=== PATIENT | female | born 1990 | race Caucasian/White ===

== ENCOUNTER 2016-12-24 15:40 | Emergency (ER) | payer BC ==
[~2016-12-24 15:40] MED LIST: ALBUTEROL SULF8.5 G1 IH; ALBUTEROL17 GM; ALBUTEROL17 GM INH; BLEPH-105 M2 OP; CARAFATE1 G2 PO; DELTASONE10 MG PO; DEPO SHOT; IBUPROFEN800 MG PO; LEXAPRO20 MG; LITHIUM CARBON300; LITHIUM CARBON300 MG; MACRODANTIN100 MG PO; MULTIVITAMIN1 TAB PO; NO HOME MEDS; NORCO 5-325 TA1 EACH PO; PHENERGAN W/CO120 ML PO; PREDNISONE50 M1 PO; PRENATAL1 EACH PO; PRILOSEC OTC20 M1 PO; PROMETHAZINE-C118 ML PO; PROMETRIUM200 MG PO; PROVENTIL HFA6.7 G1 IH; SEPTRA DS TABLE1 TAB PO; VENTOLIN HFA18 G2 PO; ZOFRAN ODT4 MG/UDTAB PO
[2017-04-02] MEDS ORDERED: VALTREX500 M1 PO (11:34)
[2017-04-02] MEDS ORDERED: ADDERALL 10 MG10 M2 PO (11:36)
[2017-04-02] MEDS ORDERED: NORCO 5-325 TA1 EACH PO (11:37)
[2017-04-02] MEDS ORDERED: CARAFATE1 G2 PO (11:42)
[2017-04-02] MEDS ORDERED: OMEPRAZOLE20 M3 PO (11:44)
[2017-04-02] MEDS ORDERED: TYLENOL EXTRA500 M1 PO (11:56)
[2017-04-11] MEDS ORDERED: FIORICET 50-301 EAC1 PO (13:13)
[2017-04-11] MEDS ORDERED: FLAGYL500 M1 PO (13:14)
[2017-04-11] MEDS ORDERED: COMPAZINE10 MG PO (15:12)
[2017-04-24] MEDS ORDERED: FLAGYL500 M1 PO (17:38)
== END 2016-12-24 19:50 ==
LOC: EDMED 15:40
DX: Z53.21 Procedure and treatment not carried out due to patient leaving prior to being seen by health care provider (principal)

== ENCOUNTER 2016-12-25 08:59 | Emergency (ER) | payer BC, SELFPAY ==
[2017-04-02] MEDS ORDERED: VALTREX500 M1 PO (11:34)
[2017-04-02] MEDS ORDERED: ADDERALL 10 MG10 M2 PO (11:36)
[2017-04-02] MEDS ORDERED: NORCO 5-325 TA1 EACH PO (11:37)
[2017-04-02] MEDS ORDERED: CARAFATE1 G2 PO (11:42)
[2017-04-02] MEDS ORDERED: OMEPRAZOLE20 M3 PO (11:44)
[2017-04-02] MEDS ORDERED: TYLENOL EXTRA500 M1 PO (11:56)
[2017-04-11] MEDS ORDERED: FIORICET 50-301 EAC1 PO (13:13)
[2017-04-11] MEDS ORDERED: FLAGYL500 M1 PO (13:14)
[2017-04-11] MEDS ORDERED: COMPAZINE10 MG PO (15:12)
[2017-04-24] MEDS ORDERED: FLAGYL500 M1 PO (17:38)
== END 2016-12-25 11:14 ==
LOC: EDMED 08:59
DX: S30.814A Abrasion of vagina and vulva, initial encounter (principal); J45.909 Unspecified asthma, uncomplicated; F17.210 Nicotine dependence, cigarettes, uncomplicated; Z90.89 Acquired absence of other organs; X58.XXXA Exposure to other specified factors, initial encounter

== ENCOUNTER 2017-02-06 11:25 | Emergency (ER) | payer MEDICAID ==
[2017-02-06 12:42] LABS: BASO % 0.1 % (0-2); EOS % 1.2 % (0-7); EOSINOPHIL ABSOLUTE COUNT 0.1 tho/cmm (0.0-0.7); HCT-HEMATOCRIT 36.6 % (34.0-49.0); HGB-HEMOGLOBIN 12.5 gm/dl (12.0-15.5); IMMATURE GRANULOCYTES ABSOLUTE 0.02 tho/cmm (0-0.03); IMMATURE GRANULOCYTES PERCENT 0.3 % (0-0.3); LYMPH % 19.2 % (20-45); LYMPH ABSOLUTE COUNT 1.5 tho/cmm (0.8-4.5); MCH (MEAN CORPUSCULAR HGB) 30.9 pg (28.0-32.0); MCHC MEAN CORPUSCULAR HGB CONC 34.2 % (32.0-36.0); MCV (MEAN CELL VOLUME) 90.6 fl (82.0-96.0); MEAN PLATELET VOLUME 9.4 cmc (9.4-12.4); MONO % 7.4 % (0-12); MONOCYTE ABSOLUTE COUNT 0.6 tho/cmm (0.0-1.2); NEUTROPHIL ABSOLUTE COUNT 5.4 tho/cmm (1.6-8.0); NEUTROPHIL-AUTOMATED 5.4 tho/cmm (1.6-8.0); NEUTROPHILS % 71.8 % (40-80); PLATELET COUNT 240 tho/cmm (150-450); RED BLOOD COUNT 4.04 mil/cmm (4.00-5.20); WHITE BLOOD COUNT 7.6 tho/cmm (4.0-10.0)
[2017-02-06 13:31] LABS: ANION GAP 13 mmol/L (0-20); BLOOD UREA NITROGEN 15 mg/dl (6-24); CALCIUM 8.8 mg/dl (8.5-10.5); CARBON DIOXIDE-VENOUS 24 mmol/L (22-32); CHLORIDE 110 mmol/l (96-110); CREATININE 0.71 mg/dl (0.50-1.10); GLUCOSE 89 mg/dL (70-110); POTASSIUM 4.5 mmol/L (3.7-5.1); SODIUM 142 mmol/L (135-145); eGFR VALUE FOR BLACK >90 mL/Min
[2017-02-06 14:33] LABS: URINE BILIRUBIN NEGATIVE (NEG); URINE BLOOD NEGATIVE (NEG); URINE GLUCOSE (UA) NEGATIVE (NEG); URINE KETONE SMALL (NEG); URINE LEUKOCYTE ESTERASE NEGATIVE (NEG); URINE NITRITE NEGATIVE (NEG); URINE PROTEIN NEGATIVE (NEG)
[2017-02-06 14:35] LABS: URINE APPEARANCE CLEAR; URINE COLOR PALE YELLOW
[2017-02-06] MEDS ORDERED: PROMETHAZINE HC25 M3 PO (14:53)
[2017-02-06] MEDS ORDERED: PRENATAL VITAM1 EA12 PO (14:53)
[2017-04-02] MEDS ORDERED: VALTREX500 M1 PO (11:34)
[2017-04-02] MEDS ORDERED: ADDERALL 10 MG10 M2 PO (11:36)
[2017-04-02] MEDS ORDERED: NORCO 5-325 TA1 EACH PO (11:37)
[2017-04-02] MEDS ORDERED: CARAFATE1 G2 PO (11:42)
[2017-04-02] MEDS ORDERED: OMEPRAZOLE20 M3 PO (11:44)
[2017-04-02] MEDS ORDERED: TYLENOL EXTRA500 M1 PO (11:56)
[2017-04-11] MEDS ORDERED: FIORICET 50-301 EAC1 PO (13:13)
[2017-04-11] MEDS ORDERED: FLAGYL500 M1 PO (13:14)
[2017-04-11] MEDS ORDERED: COMPAZINE10 MG PO (15:12)
[2017-04-24] MEDS ORDERED: FLAGYL500 M1 PO (17:38)
== END 2017-02-06 15:08 ==
LOC: EDMED 11:25
PROVIDERS: Emergency Medicine
DX: O99.89 Other specified diseases and conditions complicating pregnancy, childbirth and the puerperium (principal); O26.851 Spotting complicating pregnancy, first trimester; R10.2 Pelvic and perineal pain; R11.10 Vomiting, unspecified; R19.7 Diarrhea, unspecified
CPT/HCPCS: J0780; J7030

== ENCOUNTER 2017-02-19 17:26 | Emergency (ER) | payer MEDICAID ==
[~2017-02-19 17:26] MED LIST changes: +PRENATAL VITAM1 EA12 PO; +PROMETHAZINE HC25 M3 PO
[2017-02-20] MEDS ORDERED: LEXAPRO20 M2 PO (08:54)
[2017-02-20] MEDS ORDERED: PRENATAL-U CAPS1 CAP PO (08:54)
[2017-02-20] MEDS ORDERED: ZOFRAN ODT4 MG PO (10:45)
[2017-04-02] MEDS ORDERED: VALTREX500 M1 PO (11:34)
[2017-04-02] MEDS ORDERED: ADDERALL 10 MG10 M2 PO (11:36)
[2017-04-02] MEDS ORDERED: NORCO 5-325 TA1 EACH PO (11:37)
[2017-04-02] MEDS ORDERED: CARAFATE1 G2 PO (11:42)
[2017-04-02] MEDS ORDERED: OMEPRAZOLE20 M3 PO (11:44)
[2017-04-02] MEDS ORDERED: TYLENOL EXTRA500 M1 PO (11:56)
[2017-04-11] MEDS ORDERED: FIORICET 50-301 EAC1 PO (13:13)
[2017-04-11] MEDS ORDERED: FLAGYL500 M1 PO (13:14)
[2017-04-11] MEDS ORDERED: COMPAZINE10 MG PO (15:12)
[2017-04-24] MEDS ORDERED: FLAGYL500 M1 PO (17:38)
== END 2017-02-19 19:54 | disposition left against medical advice (07) ==
LOC: EDMED 17:26
DX: Z53.21 Procedure and treatment not carried out due to patient leaving prior to being seen by health care provider (principal)

== ENCOUNTER 2017-02-20 08:46 | Emergency (ER) | payer MEDICAID ==
[2017-02-20] MEDS ORDERED: LEXAPRO20 M2 PO (08:54)
[2017-02-20] MEDS ORDERED: PRENATAL-U CAPS1 CAP PO (08:54)
[2017-02-20 10:45] LABS: BASO % 0.1 % (0-2); EOS % 0.7 % (0-7); EOSINOPHIL ABSOLUTE COUNT 0.1 tho/cmm (0.0-0.7); HCT-HEMATOCRIT 35.8 % (34.0-49.0); HGB-HEMOGLOBIN 12.3 gm/dl (12.0-15.5); IMMATURE GRANULOCYTES ABSOLUTE 0.01 tho/cmm (0-0.03); IMMATURE GRANULOCYTES PERCENT 0.1 % (0-0.3); LYMPH % 14.9 % (20-45); MCH (MEAN CORPUSCULAR HGB) 30.8 pg (28.0-32.0); MCHC MEAN CORPUSCULAR HGB CONC 34.4 % (32.0-36.0); MCV (MEAN CELL VOLUME) 89.5 fl (82.0-96.0); MEAN PLATELET VOLUME 9.7 cmc (9.4-12.4); MONO % 8.8 % (0-12); MONOCYTE ABSOLUTE COUNT 0.6 tho/cmm (0.0-1.2); NEUTROPHIL ABSOLUTE COUNT 5.1 tho/cmm (1.6-8.0); NEUTROPHIL-AUTOMATED 5.1 tho/cmm (1.6-8.0); NEUTROPHILS % 75.4 % (40-80); PLATELET COUNT 230 tho/cmm (150-450); RED CELL DISTRIBUTION WIDTH 11.8 % (12.4-16.4); WHITE BLOOD COUNT 6.8 tho/cmm (4.0-10.0)
[2017-02-20] MEDS ORDERED: ZOFRAN ODT4 MG PO (10:45)
[2017-02-20 10:52] LABS: ANION GAP 13 mmol/L (0-20); BLOOD UREA NITROGEN 11 mg/dl (6-24); CALCIUM 8.5 mg/dl (8.5-10.5); CARBON DIOXIDE-VENOUS 24 mmol/L (22-32); CHLORIDE 109 mmol/l (96-110); CREATININE 0.71 mg/dl (0.50-1.10); GLUCOSE 86 mg/dL (70-110); POTASSIUM 3.9 mmol/L (3.7-5.1); SODIUM 142 mmol/L (135-145); eGFR VALUE FOR BLACK >90 mL/Min
[2017-04-02] MEDS ORDERED: VALTREX500 M1 PO (11:34)
[2017-04-02] MEDS ORDERED: ADDERALL 10 MG10 M2 PO (11:36)
[2017-04-02] MEDS ORDERED: NORCO 5-325 TA1 EACH PO (11:37)
[2017-04-02] MEDS ORDERED: CARAFATE1 G2 PO (11:42)
[2017-04-02] MEDS ORDERED: OMEPRAZOLE20 M3 PO (11:44)
[2017-04-02] MEDS ORDERED: TYLENOL EXTRA500 M1 PO (11:56)
[2017-04-11] MEDS ORDERED: FIORICET 50-301 EAC1 PO (13:13)
[2017-04-11] MEDS ORDERED: FLAGYL500 M1 PO (13:14)
[2017-04-11] MEDS ORDERED: COMPAZINE10 MG PO (15:12)
[2017-04-24] MEDS ORDERED: FLAGYL500 M1 PO (17:38)
== END 2017-02-20 11:17 ==
LOC: EDMED 08:46
PROVIDERS: Emergency Medicine
DX: O21.9 Vomiting of pregnancy, unspecified (principal); O99.89 Other specified diseases and conditions complicating pregnancy, childbirth and the puerperium; R19.7 Diarrhea, unspecified; Z90.89 Acquired absence of other organs
CPT/HCPCS: J2405; J7030

== ENCOUNTER 2017-03-20 15:59 | Emergency (ER) | payer MEDICAID ==
[~2017-03-20 15:59] MED LIST changes: +LEXAPRO20 M2 PO; +PRENATAL-U CAPS1 CAP PO; +ZOFRAN ODT4 MG PO
[2017-03-20 17:16] LABS: URINE BILIRUBIN NEGATIVE (NEG); URINE BLOOD NEGATIVE (NEG); URINE GLUCOSE (UA) NEGATIVE (NEG); URINE KETONE MODERATE (NEG); URINE LEUKOCYTE ESTERASE POSITIVE (NEG); URINE NITRITE NEGATIVE (NEG); URINE PROTEIN SMALL (NEG); URINE SPECIFIC GRAVITY 1.015 (1.003-1.030)
[2017-03-20 17:18] LABS: URINE APPEARANCE CLOUDY; URINE COLOR DARK YELLOW
[2017-03-20 17:22] LABS: URINE BACTERIA 2+; URINE EPITHELIAL CELLS 20-25 /[HPF] (0-10); URINE MUCUS 2+; URINE RBC 0 /[HPF] (0-5); URINE WBC 0-2 /[HPF] (0-5)
[2017-04-02] MEDS ORDERED: VALTREX500 M1 PO (11:34)
[2017-04-02] MEDS ORDERED: ADDERALL 10 MG10 M2 PO (11:36)
[2017-04-02] MEDS ORDERED: NORCO 5-325 TA1 EACH PO (11:37)
[2017-04-02] MEDS ORDERED: CARAFATE1 G2 PO (11:42)
[2017-04-02] MEDS ORDERED: OMEPRAZOLE20 M3 PO (11:44)
[2017-04-02] MEDS ORDERED: TYLENOL EXTRA500 M1 PO (11:56)
[2017-04-11] MEDS ORDERED: FIORICET 50-301 EAC1 PO (13:13)
[2017-04-11] MEDS ORDERED: FLAGYL500 M1 PO (13:14)
[2017-04-11] MEDS ORDERED: COMPAZINE10 MG PO (15:12)
[2017-04-24] MEDS ORDERED: FLAGYL500 M1 PO (17:38)
== END 2017-03-20 19:47 ==
LOC: EDMED 15:59
PROVIDERS: Physician Assistant
DX: O26.891 Other specified pregnancy related conditions, first trimester (principal); R10.2 Pelvic and perineal pain; R10.32 Left lower quadrant pain; Z3A.10 10 weeks gestation of pregnancy; Z98.890 Other specified postprocedural states; F17.210 Nicotine dependence, cigarettes, uncomplicated

== ENCOUNTER 2017-06-18 16:10 | Observation (INO) | payer MEDICAID ==
[~2017-06-18 16:10] MED LIST changes: +ADDERALL 10 MG10 M2 PO; +COMPAZINE10 MG PO; +FIORICET 50-301 EAC1 PO; +FLAGYL500 M1 PO; +OMEPRAZOLE20 M3 PO; +TYLENOL EXTRA500 M1 PO; +VALTREX500 M1 PO
== END 2017-06-18 17:15 ==
LOC: LDR 16:10
PROVIDERS: ADMIT Advanced Practice Midwife
DX: O36.8120 Decreased fetal movements, second trimester, not applicable or unspecified (principal); Z3A.23 23 weeks gestation of pregnancy; Z79.899 Other long term (current) drug therapy